=== PATIENT | male | born 1950 | race Caucasian/White ===

== ENCOUNTER 2017-07-01 10:09 | Day surgery (SDC) | payer BC, MEDICARE ==
[~2017-07-01 10:09] MED LIST: Bupivacaine 0.25% 10 ML SDV ONE; Lactated Ringers 1,000 ML IV SCH; Lidocaine 1% 30 ML SDV ONE; Lidocaine 1%/Sod Bicarbonate in NS 8.4% 1 ML Syringe IV PRN; Sodium Chloride 0.9% 10 ML Syringe FLUSH PRN
--- NOTE | 2017-07-01 10:48 | PCM.PREANE ---
Preanesthetic Assessment - Procedure Proposed Procedure: right 4th trigger finger release - Anesthesia/Transfusion/Family Hx Anesthesia History: Prior Anesthesia Without Reaction Family History of Anesthesia Reaction: No Transfusion History: No Prior Transfusion(s) - Review of Systems General: No Symptoms Pulmonary: No Symptoms Cardiovascular: Dyspnea on Exertion Gastrointestinal: No Symptoms Neurological: No Symptoms Other: Reports: Diabetes (blood sugar this AM 101 at 1030), Depression - Physical Assessment NPO Status Date: 06/30/17 NPO Status Time: 00:00 Pulse: 59 O2 Sat by Pulse Oximetry: 96 Respiratory Rate: 18 Blood Pressure: 146/79 Temperature: 36.4 C Height: 1.8 m Weight: 143.018 kg ASA Class: 3 Mental Status: Alert & Oriented x3 Dentition: Reports: Normal Dentition, Wanda(s) Thyro-Mental Finger Breadths: 3 Mouth Opening Finger Breadths: 3 ROM/Head Extension: Full Lungs: Clear to Auscultation, Normal Respiratory Effort Cardiovascular: Regular Rate, Regular Rhythm, No Murmurs - Lab Values: Laboratory Last Values POC Glucose 101 mg/dL (80-115) 07/01/17 10:31 MRSA (PCR) Negative 06/29/17 13:32 - Allergies Allergies/Adverse Reactions: Allergies Allergy/AdvReac Type Severity Reaction Status Date / Time No Known Allergies Allergy Verified 06/30/17 15:06 - Blood Blood Available: No Product(s) Available: None - Anesthesia Plan Pre-Op Medication Ordered: None - Acknowledgements Anesthesia Type Planned: MAC Pt an Appropriate Candidate for the Planned Anesthesia: Yes Alternatives and Risks of Anesthesia Discussed w Pt/Guardian: Yes Pt/Guardian Understands and Agrees with Anesthesia Plan: Yes PreAnesthesia Questionnaire HEENT History: Reports: Cataract, Impaired Vision Cardiovascular History: Reports: CAD, High Cholesterol, Hypertension, Other ( See Below) Other Cardiovascular History: edema Respiratory History: Reports: Sleep Apnea, Other (See Below) Other Respiratory History: childhood interstitial lung disease Gastrointestinal History: Reports: Cholelithiasis, Hemorrhoids, Other (See Below ) Other Gastrointestinal History: obesity: had lap band done in 2006 Genitourinary History: Reports: Other (See Below) Other Genitourinary History: stage II renal insufficiency, BPH, proteinuria, testicular hypofunction, hematuria, UTI COMPRESSOR BATTERY PELLETS History: Reports: None Musculoskeletal History: Reports: Arthritis, Other (See Below) Other Musculoskeletal History: lumbago, neck injury Neurological History: Reports: Neuropathy, Diabetic Psychiatric History: Reports: Depression Endocrine/Metabolic History: Reports: Diabetes, Type II, Hyperparathyroidism, Obesity/BMI 30+ Hematologic History: Reports: Other (See Below) Other Hematologic History: high uric acic levels Immunologic History: Reports: None Oncologic (Cancer) History: Reports: None Dermatologic History: Reports: Other (See Below) Other Dermatologic History: fungal skin infection - Past Surgical History Head Surgeries/Procedures: Reports: None HEENT Surgical History: Reports: Cataract Surgery, Tonsillectomy Cardiovascular Surgical History: Reports: None Respiratory Surgical History: Reports: None GI Surgical History: Reports: Bariatric Procedure, Hernia Repair/Other Female Surgical History: Reports: None Male Surgical History: Reports: None Endocrine Surgical History: Reports: None Neurological Surgical History: Reports: None Musculoskeletal Surgical History: Reports: None Oncologic Surgical History: Reports: None - SUBSTANCE USE Smoking Status *Q: Never Smoker Tobacco Use Within Last Twelve Months: No Second Hand Smoke Exposure: No Days Per Week of Alcohol Use: 0 Number of Drinks Per Day: 1 Total Drinks Per Week: 0 Recreational Drug Use History: No - HOME MEDS Home Medications: Home Meds Allopurinol [Zyloprim] 150 mg PO DAILY 03/06/15 [History] Multivit-Min/FA/Lycopene/Lut [Centrum Silver Ultra Men's] 1 each PO DAILY [History] PARoxetine [Paxil] 20 mg PO DAILY 03/06/15 [History] Terazosin [Hytrin] 2 mg PO DAILY 03/06/15 [History] Testosterone [Androgel] 2 appful TOP ASDIRECTED 03/06/15 [History] Aspirin [Halfprin] 81 mg PO DAILY 06/30/17 [History] Canagliflozin/Metformin HCl [Invokamet 150-500 mg Tablet] 1 tab PO BID 06/30/17 [History] Cholecalciferol (Vitamin D3) [Vitamin D3] 4,000 unit PO DAILY 06/30/17 [History] Losartan [Cozaar] 100 mg PO DAILY 06/30/17 [History] Rosuvastatin [Crestor] 20 mg PO DAILY 06/30/17 [History] Tamsulosin [Flomax] 0.4 mg PO DAILY 06/30/17 [History] amLODIPine [Norvasc] 5 mg PO DAILY 06/30/17 [History] Hydrocodone/Acetaminophen [[place] 5-325 Tablet] 1 - 2 each PO Q6H PRN #10 tablet 07/01/17 [Rx] - CURRENT (IN HOUSE) MEDS Current Meds: Current Medications Lactated Ringer's (Ringers, Lactated) 1,000 mls @ 125 mls/hr IV ASDIRECTED JEREMÍAS Stop: 07/01/17 23:00 Lidocaine/Sodium Bicarbonate (Buffered Lidocaine 1% In Ns 8.4%) 0.25 ml IV ONETIME PRN PRN Reason: Prior to IV Start Stop: 07/01/17 18:00 Sodium Chloride (Saline Flush) 10 ml FLUSH ASDIRECTED PRN PRN Reason: Keep Vein Open Stop: 07/01/17 18:00 Discontinued Medications Bupivacaine HCl (Sensorcaine-Mpf 0.25%) Confirm Administered Dose 10 ml .ROUTE .STK-MED ONE Stop: 07/01/17 10:10 Lidocaine HCl (Xylocaine-Mpf 1%) Confirm Administered Dose 30 ml .ROUTE .STK- MED ONE Stop: 07/01/17 10:10
[2017-07-01] MEDS ORDERED: fentaNYL 100 MCG/2 ML SDV ONE (11:17)
[2017-07-01] MEDS ORDERED: Midazolam 1 MG/ML 2 ML SDV ONE (11:17)
[2017-07-01] MEDS ORDERED: Propofol 200 MG/20 ML SDV ONE (11:17)
[2017-07-01] MEDS ORDERED: ceFAZolin 1 GM Vial ONE ×2 (11:22)
[2017-07-01 13:56] VITALS: BP 136/75
--- NOTE | 2017-07-05 14:27 | PCM.OPNOTE ---
- General Post-Op/Procedure Note Date of Surgery/Procedure: 07/01/17 Operative Procedure(s): right ring finger a1 huang release Pre Op Diagnosis: right ring finger stenosing tenosynovitis Post-Op Diagnosis: Same Anesthesia Technique: Local, MAC Primary Surgeon: Rob Weller Anesthesia Provider: Gianfranco Preston EBL in mLs: 5 Complications: None Condition: Good
--- NOTE | 2017-07-05 15:01 | OR ---
DATE OF OPERATION: 07/01/2017 SURGEON: Rob Weller MD OPERATIVE PROCEDURE: Right ring finger A1 huang release. PREOPERATIVE DIAGNOSIS: Right ring finger stenosing tenosynovitis. POSTOPERATIVE DIAGNOSIS: Right ring finger stenosing tenosynovitis. ANESTHESIA: Local MAC. ANESTHESIA PROVIDER: Gianfranco Preston CRNA. DELIVERY DRIVER/CUSTOMER SERVICE: None. COMPLICATIONS: None. ESTIMATED BLOOD LOSS: 5 mL. DESCRIPTION OF PROCEDURE: The patient was identified in the preop holding area. Proper site was marked and identified by the surgeon. The patient was taken back to the operating theater, where after adequate anesthesia, the patient's right upper extremity was sterilely prepped and draped in the usual sterile fashion. OR time-out was performed. The patient did not receive antibiotics as it is not indicated for soft tissue hand procedure. At this time, 1% lidocaine without epinephrine and 0.25% Marcaine without epinephrine was used to anesthetize the transverse incision site over the A1 huang. An Esmarch was used as a tourniquet on the forearm, and transverse incision was then made. Blunt dissection was taken down to the A1 huang. Ragnell retractors were then placed both on the ulnar and radial side, protected the neurovascular bundles. A Battiest blade was then used for release of the A1 huang. Tenotomy scissors was used for release of the huang system down into the palm, further the patient had good release with no catching noted, with making a fist. The tendon was brought through the wound bed and there was found to be no significant adhesions. At this time, adequate saline was irrigated through the wound. 4-0 nylon simple suture was used for closure of the skin. The patient tolerated the procedure well and sent to the PACU in stable condition. OPERATION PERFORMED: MMODAL /[id number]
== END 2017-07-01 13:15 | disposition home or self-care (01) ==
LOC: JD.SDS 10:09
PROVIDERS: ATTEND Orthopaedic Surgery
DX: M65.841 Other synovitis and tenosynovitis, right hand (principal); E11.22 Type 2 diabetes mellitus with diabetic chronic kidney disease; I12.9 Hypertensive chronic kidney disease with stage 1 through stage 4 chronic kidney disease, or unspecified chronic kidney disease; E11.21 Type 2 diabetes mellitus with diabetic nephropathy; N18.3 Chronic kidney disease, stage 3 (moderate); E66.01 Morbid (severe) obesity due to excess calories; Z68.41 Body mass index [BMI] 40.0-44.9, adult; I25.10 Atherosclerotic heart disease of native coronary artery without angina pectoris; N40.0 Benign prostatic hyperplasia without lower urinary tract symptoms; G47.33 Obstructive sleep apnea (adult) (pediatric); Z99.89 Dependence on other enabling machines and devices; N25.81 Secondary hyperparathyroidism of renal origin; Z79.82 Long term (current) use of aspirin; Z79.4 Long term (current) use of insulin; Z79.899 Other long term (current) drug therapy
CPT/HCPCS: 26055; 82962; 87641; J0690; J2250; J3010; J7120; 01810; J2704

== ENCOUNTER → 2018-08-30 | Day surgery (SDC) | payer MEDICARE ==
[~2018-08-30] MED LIST changes: +Brimonidine 0.2% Ophth Soln 5 ML Bottle EYERT SCH; -Bupivacaine 0.25% 10 ML SDV ONE; -Lactated Ringers 1,000 ML IV SCH; -Lidocaine 1% 30 ML SDV ONE; -Lidocaine 1%/Sod Bicarbonate in NS 8.4% 1 ML Syringe IV PRN; +Phenylephrine 2.5% Ophth Soln 2 ML Bot EYERT SCH; -Sodium Chloride 0.9% 10 ML Syringe FLUSH PRN; +Tropicamide 1% Ophth Soln 15 ML Bottle EYERT SCH
[2018-08-30 12:17] VITALS: BP 136/79
== END ==
LOC: JD.SDS 11:26
PROVIDERS: ATTEND Ophthalmology
DX: E11.36 Type 2 diabetes mellitus with diabetic cataract (principal); H26.491 Other secondary cataract, right eye; H17.813 Minor opacity of cornea, bilateral; H16.103 Unspecified superficial keratitis, bilateral; I10 Essential (primary) hypertension; E78.00 Pure hypercholesterolemia, unspecified; Z98.42 Cataract extraction status, left eye; Z98.41 Cataract extraction status, right eye; Z96.1 Presence of intraocular lens; Z79.84 Long term (current) use of oral hypoglycemic drugs; Z79.899 Other long term (current) drug therapy

== ENCOUNTER 2018-09-30 06:59 | Day surgery (SDC) | payer MEDICARE ==
[~2018-09-30 06:59] MED LIST changes: -Brimonidine 0.2% Ophth Soln 5 ML Bottle EYERT SCH; +Lactated Ringers 1,000 ML IV SCH; +Lidocaine 1%/Sod Bicarbonate in NS 8.4% 1 ML Syringe IDERM PRN; -Phenylephrine 2.5% Ophth Soln 2 ML Bot EYERT SCH; +Sodium Chloride 0.9% 10 ML Syringe FLUSH PRN; -Tropicamide 1% Ophth Soln 15 ML Bottle EYERT SCH
--- NOTE | 2018-09-30 07:51 | PCM.PREANE ---
Preanesthetic Assessment - Anesthesia/Transfusion/Family Hx Anesthesia History: Prior Anesthesia Without Reaction Family History of Anesthesia Reaction: No Transfusion History: No Prior Transfusion(s) - Review of Systems General: No Symptoms Pulmonary: No Symptoms, Other (Sleep Apnea. CPAP use.) Cardiovascular: No Symptoms Gastrointestinal: No Symptoms Neurological: No Symptoms Other: Reports: None (Morbid Obesity BMI 47.), Diabetes (Blood Glucose at 112 mg /dl. ) - Physical Assessment NPO Status Date: 09/29/18 NPO Status Time: 22:00 O2 Sat by Pulse Oximetry: 93 Respiratory Rate: 20 Vital Signs: Last Vital Signs Temp 36.3 C 09/30/18 07:15 Pulse 57 L 09/30/18 07:15 Resp 20 09/30/18 07:15 BP 139/69 09/30/18 07:15 Pulse Ox 93 L 09/30/18 07:15 Height: 1.8 m Weight: 145.15 kg ASA Class: 3 Mental Status: Alert & Oriented x3 Airway Class: Mallampati = 2 Dentition: Reports: Normal Dentition Thyro-Mental Finger Breadths: 3 Mouth Opening Finger Breadths: 3 ROM/Head Extension: Full Lungs: Clear to Auscultation, Normal Respiratory Effort Cardiovascular: Regular Rate, Regular Rhythm - Lab Values: Laboratory Last Values POC Glucose 112 mg/dL (80-115) 09/30/18 07:24 - Allergies Allergies/Adverse Reactions: Allergies Allergy/AdvReac Type Severity Reaction Status Date / Time No Known Allergies Allergy Verified 09/29/18 12:25 - Acknowledgements Anesthesia Type Planned: MAC Pt an Appropriate Candidate for the Planned Anesthesia: Yes Alternatives and Risks of Anesthesia Discussed w Pt/Guardian: Yes Pt/Guardian Understands and Agrees with Anesthesia Plan: Yes PreAnesthesia Questionnaire HEENT History: Reports: Cataract, Impaired Vision Cardiovascular History: Reports: CAD, High Cholesterol, Hypertension, Other ( See Below) Other Cardiovascular History: edema Respiratory History: Reports: Sleep Apnea, Other (See Below) Other Respiratory History: childhood interstitial lung disease, alveolar hypoventilation, sleep apnea with cpap Gastrointestinal History: Reports: Cholelithiasis, Hemorrhoids, Other (See Below ) Other Gastrointestinal History: hematochezia, LUQ pain, abdominal all pain Genitourinary History: Reports: UTI, Recurrent, Other (See Below) Other Genitourinary History: stage II renal insufficiency, BPH, proteinuria, testicular hypofunction, hematuria, UTI, hypogonadism JOINERY PATTERNMAKER History: Reports: None Musculoskeletal History: Reports: Arthritis, Other (See Below) Other Musculoskeletal History: lumbago, neck injury Neurological History: Reports: Neuropathy, Diabetic Psychiatric History: Reports: Depression Endocrine/Metabolic History: Reports: Diabetes, Type II, Hyperparathyroidism, Obesity/BMI 30+, Vitamin D Deficiency Hematologic History: Reports: None, Other (See Below) Other Hematologic History: high uric acic levels Immunologic History: Reports: None Oncologic (Cancer) History: Reports: None Dermatologic History: Reports: Other (See Below) Other Dermatologic History: fungal skin infection, left breast lumpectomy, right upper arm lipoma removal, keratomileusis - Past Surgical History Head Surgeries/Procedures: Reports: None HEENT Surgical History: Reports: Cataract Surgery, Tonsillectomy Cardiovascular Surgical History: Reports: None Respiratory Surgical History: Reports: None GI Surgical History: Reports: Bariatric Procedure, Hernia Repair/Other Female Surgical History: Reports: None Male Surgical History: Reports: None Endocrine Surgical History: Reports: None Neurological Surgical History: Reports: None Musculoskeletal Surgical History: Reports: None Oncologic Surgical History: Reports: None Dermatological Surgical History: Reports: None - SUBSTANCE USE Smoking Status *Q: Never Smoker Recreational Drug Use History: No - HOME MEDS Home Medications: Home Meds Aspirin [Halfprin] 81 mg PO DAILY 09/29/18 [History] Calcitriol 0.25 mcg PO DAILY 09/29/18 [History] Cholecalciferol (Vitamin D3) [Vitamin D3] 5,000 unit PO DAILY 09/29/18 [History] Dapagliflozin/Metformin HCl [Xigduo Xr 10 mg-500 mg Tablet] 1 tab PO DAILY 09/29 [History] Escitalopram [Lexapro] 20 mg PO DAILY 09/29/18 [History] FA/Lycopene/Lut/MV,Ca,Iron,Min [Centrum] 1 tab PO DAILY 09/29/18 [History] Febuxostat [Uloric] 40 mg PO DAILY 09/29/18 [History] Finasteride 5 mg PO DAILY 09/29/18 [History] Rosuvastatin Calcium 20 mg PO DAILY 09/29/18 [History] Tamsulosin HCl [Flomax] 0.4 mg PO DAILY 09/29/18 [History] Testosterone 1 dose TOP DAILY 09/29/18 [History] Valsartan/Hydrochlorothiazide [Diovan Hct 320-25 mg Tablet] 1 tab PO DAILY 09/29 [History] amLODIPine [Norvasc] 5 mg PO DAILY 09/29/18 [History] - CURRENT (IN HOUSE) MEDS Current Meds: Current Medications Lactated Ringer's (Ringers, Lactated) 1,000 mls @ 125 mls/hr IV ASDIRECTED JEREMÍAS Stop: 09/30/18 23:00 Lidocaine/Sodium Bicarbonate (Buffered Lidocaine 1% In Ns 8.4%) 0.25 ml IDERM ONETIME PRN PRN Reason: Prior to IV Start Stop: 09/30/18 18:00 Sodium Chloride (Saline Flush) 10 ml FLUSH ASDIRECTED PRN PRN Reason: Keep Vein Open Stop: 09/30/18 18:00
[2018-09-30] MEDS ORDERED: Propofol 200 MG/20 ML SDV ONE ×2 (08:12→08:14)
[2018-09-30] MEDS ORDERED: fentaNYL 100 MCG/2 ML SDV ONE (08:13)
[2018-09-30] MEDS ORDERED: Lidocaine 1% 4 ML ONE (08:13)
--- NOTE | 2018-09-30 08:59 | PCM.OPNOTE ---
- General Post-Op/Procedure Note Date of Surgery/Procedure: 09/30/18 Operative Procedure(s): Colonoscopy with cold forceps biopsy Findings: 2 mm cecal polyp, grade 1 internal hemorrhoids Pre Op Diagnosis: Hematochezia Post-Op Diagnosis: 2 mm cecal polyp, grade 1 internal hemorrhoids Anesthesia Technique: MAC Primary Surgeon: Mitchel Ross Anesthesia Provider: Rhianna Enriquez EBL in mLs: 5 Complications: None Condition: Good Free Text/Narrative:: After the patient gave verbal and written consent he was placed on blood pressure and pulse ox monitoring. He was given iv sedation which he tolerated well. The olympus colonoscope was inserted per rectum and advanced to the cecum without difficulty. The ileocecal valve and appendiceal orfice were imaged documenting cecal intubation. The scope was slowly withdrawn. The mucosal surfaces were carefully examined. The prep was good, the views were good. A 2 mm cecal polyp was noted and removed with cold forceps biopsy. There was good hemostasis at the end of the procedure. The scope was then retroflexed in the rectum and grade 1 internal hemorrhoids were noted. The scope was then removed. The patient tolerated the procedure well and there were no complications. THe patient left the endoscopy suite in good condition.
--- NOTE | 2018-09-30 09:04 | PCM48HPAN ---
Post Anesthesia Note - EVALUATION WITHIN 48HRS OF ANESTHETIC Vital Signs in Normal Range: Yes Patient Participated in Evaluation: Yes Respiratory Function Stable: Yes Airway Patent: Yes Cardiovascular Function Stable: Yes Hydration Status Stable: Yes Pain Control Satisfactory: Yes Nausea and Vomiting Control Satisfactory: Yes Mental Status Recovered: Yes Pulse Rate: 65 SaO2: 93 Resp Rate: 12 Temperature: 36.2 C Blood Pressure: 161/98
[2018-09-30 09:34] VITALS: BP 138/79
== END 2018-09-30 09:40 | disposition home or self-care (01) ==
LOC: JD.SDS 06:59
PROVIDERS: ATTEND Family Medicine
DX: D12.0 Benign neoplasm of cecum (principal); K64.0 First degree hemorrhoids; I25.10 Atherosclerotic heart disease of native coronary artery without angina pectoris; I12.9 Hypertensive chronic kidney disease with stage 1 through stage 4 chronic kidney disease, or unspecified chronic kidney disease; E11.22 Type 2 diabetes mellitus with diabetic chronic kidney disease; N18.4 Chronic kidney disease, stage 4 (severe); E78.2 Mixed hyperlipidemia; N25.81 Secondary hyperparathyroidism of renal origin; E11.21 Type 2 diabetes mellitus with diabetic nephropathy; M19.90 Unspecified osteoarthritis, unspecified site; N40.0 Benign prostatic hyperplasia without lower urinary tract symptoms; E66.2 Morbid (severe) obesity with alveolar hypoventilation; Z68.42 Body mass index [BMI] 45.0-49.9, adult; Z99.89 Dependence on other enabling machines and devices; Z79.82 Long term (current) use of aspirin; Z79.84 Long term (current) use of oral hypoglycemic drugs; Z79.899 Other long term (current) drug therapy
CPT/HCPCS: 45380; 82962; J2001; J2704; J7120; 00811; J3010

== ENCOUNTER 2024-03-22 15:02 | Emergency (ER) | payer MEDICARE ==
[2024-03-22 15:57] LABS: BASOPHILS ABSOLUTE AUTO 0.1 K/mm3 (0.0-0.2); BASOPHILS PERCENT AUTO 0.7 % (0.0-1.0); EOSINOPHILS ABSOLUTE AUTO 0.2 K/mm3 (0.0-0.4); EOSINOPHILS PERCENT AUTO 2.9 % (0.0-6.0); HEMATOCRIT 41.1 % (42.0-52.0); HEMOGLOBIN 13.1 gm/dl (14.0-18.0); IMMATURE GRAN ABSOLUTE AUTO 0.02 K/mm3 (0.00-0.05); IMMATURE GRAN PERCENT AUTO 0.2 % (0.0-0.4); LYMPHOCYTES ABSOLUTE AUTO 1.6 K/mm3 (1.0-4.8); LYMPHOCYTES PERCENT AUTO 19.8 % (24.0-44.0); MEAN CORPUSCULAR HEMOGLOBIN 27.5 pg (28.0-32.0); MEAN CORPUSCULAR HGB CONC 31.9 g/dl (32.0-36.0); MEAN CORPUSCULAR VOLUME 86.2 fl (83.0-99.0); MEAN PLATELET VOLUME 9.6 fl (9.4-12.4); MONOCYTES ABSOLUTE AUTO 0.9 K/mm3 (0.0-0.8); NEUTROPHILS ABSOLUTE AUTO 5.2 K/mm3 (1.8-7.7); NEUTROPHILS PERCENT AUTO 65.4 % (41.0-71.0); PLATELET COUNT,PLT 254 K/mm3 (150-400); RED BLOOD CELL COUNT 4.77 M/mm3 (4.52-5.90); WHITE BLOOD CELL COUNT,WBC 8.02 K/mm3 (3.9-11.3)
[2024-03-22 16:20] LABS: ALBUMIN 3.4 g/dl (3.4-5.0); ANION GAP 11.9 (5-15); BILIRUBIN TOTAL 0.3 mg/dL (0.2-1.0); BUN/CREATININE RATIO 18.1 (14-18); CALCIUM 9.8 mg/dL (8.5-10.1); CREATININE 2.6 mg/dL (0.7-1.3); EST CRCL DRUG DOSING (CG) 26.54 mL/min; POTASSIUM,K 3.9 mEq/L (3.5-5.1); PROTEIN TOTAL,TP 6.9 g/dl (6.4-8.2)
[2024-03-22 17:30] VITALS: BP 125/62; PULSE 65
== END 2024-03-22 17:04 | disposition home or self-care (01) ==
LOC: JD.ED 15:02
DX: R07.89 Other chest pain (principal); I12.9 Hypertensive chronic kidney disease with stage 1 through stage 4 chronic kidney disease, or unspecified chronic kidney disease; N18.2 Chronic kidney disease, stage 2 (mild); I25.10 Atherosclerotic heart disease of native coronary artery without angina pectoris; E78.00 Pure hypercholesterolemia, unspecified; E11.40 Type 2 diabetes mellitus with diabetic neuropathy, unspecified; E11.22 Type 2 diabetes mellitus with diabetic chronic kidney disease; E66.9 Obesity, unspecified; Z79.899 Other long term (current) drug therapy; Z79.82 Long term (current) use of aspirin; Z79.84 Long term (current) use of oral hypoglycemic drugs
CPT/HCPCS: 36415; 71045; 71045-26; 80053; 84484; 85025; 85379; 99285

== ENCOUNTER 2024-04-19 08:53 | Day surgery (SDC) | payer MEDICARE ==
[~2024-04-19 08:53] MED LIST changes: -Lactated Ringers 1,000 ML IV SCH; +Lidocaine 1% 5 ML VIAL ONE; -Lidocaine 1%/Sod Bicarbonate in NS 8.4% 1 ML Syringe IDERM PRN; +Midazolam 1 MG/ML 2 ML SDV ONE; +Propofol 200 MG/20 ML SDV ONE; +Sodium Chloride 0.9% 10 ML Syringe FLUSH SCH; +fentaNYL 100 MCG/2 ML SDV ONE
[2024-04-19] MEDS: Lactated Ringers 1,000 ML IV SCH (09:30)
[2024-04-19 11:22] VITALS: BP 145/64; PULSE 64
== END 2024-04-19 11:20 | disposition home or self-care (01) ==
LOC: JD.SDS 08:53
PROVIDERS: ATTEND Surgery
DX: Z12.11 Encounter for screening for malignant neoplasm of colon (principal); D12.2 Benign neoplasm of ascending colon; D12.3 Benign neoplasm of transverse colon; D12.4 Benign neoplasm of descending colon; K57.30 Diverticulosis of large intestine without perforation or abscess without bleeding; K64.8 Other hemorrhoids; Z86.0100 Personal history of colon polyps, unspecified; I10 Essential (primary) hypertension; E11.9 Type 2 diabetes mellitus without complications; I25.10 Atherosclerotic heart disease of native coronary artery without angina pectoris; E78.00 Pure hypercholesterolemia, unspecified; Z79.82 Long term (current) use of aspirin; Z79.899 Other long term (current) drug therapy
CPT/HCPCS: 45380; 82947; J2250; J2704; J3010; J7120; 00811; 88305; 99100; J3490